=== PATIENT | male | born 1975 | race African-American/Black ===

== ENCOUNTER 2021-10-09 20:40 | Observation (INO) | payer SELFPAY ==
[~2021-10-09] VITALS: Ht 182 cm; Wt 84.3 kg
[2021-10-09] MEDS ORDERED: LACTATED RINGERS 1,000 ML IV ONE ×2 (20:45→21:15)
[2021-10-09 20:56] LABS: BASOPHILS % (AUTO) 0 % (0-10); EOSINOPHILS # (AUTO) 0.1 10^3/uL (0.0-0.3); EOSINOPHILS % (AUTO) 0 % (0-10); HEMATOCRIT 55 % (40-54); HEMOGLOBIN 17.9 g/dL (13.3-17.7); LYMPHOCYTES # (AUTO) 1.5 10^3/uL (1.0-4.0); LYMPHOCYTES % (AUTO) 13 % (12-44); MEAN CORPUSCULAR HEMOGLOBIN 26 pg (25-34); MEAN CORPUSCULAR HGB CONC 33 g/dL (32-36); MEAN CORPUSCULAR VOLUME 81 fL (80-99); MEAN PLATELET VOLUME 9.5 fL (9.0-12.2); MONOCYTES # (AUTO) 0.8 10^3/uL (0.0-1.0); MONOCYTES % (AUTO) 6 % (0-12); NEUTROPHILS # (AUTO) 9.9 10^3/uL (1.8-7.8); NEUTROPHILS % (AUTO) 80 % (42-75); PLATELET COUNT 375 10^3/uL (130-400); WHITE BLOOD COUNT 12.4 10^3/uL (4.3-11.0)
--- NOTE | 2021-10-09 20:58 | ED General ---
General Stated Complaint: HEAT EXHAUSTION History of Present Illness Date Seen by Provider: Oct 09, 2021 Time Seen by Provider: 20:40 Initial Comments 45-year-old -Hungarian male presents for weakness, chills, and dehydration. He states that he worked in a building that is not fully air- conditioned until approximately 6 PM tonight, he was drinking water regularly but upon coming home he became extremely weak and got chills. He has not been dehydrated before. Reports muscle cramps. Timing/Duration: 1-3 Hours Severity: Mild Associated Systoms: Denies Symptoms; No Malaise, No Nausea/Vomiting; Weakness Allergies and Home Medications Allergies Coded Allergies: No Known Drug Allergies (Unverified , 10/09/21) Patient Home Medication List Home Medication List Reviewed: Yes Review of Systems Review of Systems Constitutional: no symptoms reported, see HPI Respiratory: no symptoms reported, see HPI; No cough, No dyspnea on exertion, No short of breath Cardiovascular: no symptoms reported, see HPI; No chest pain Gastrointestinal: no symptoms reported, see HPI; No abdominal pain, No diarrhea, No nausea, No vomiting Musculoskeletal: see HPI, muscle cramps All Other Systems Reviewed Negative Unless Noted: Yes Past Lnvmfaj-Caxjkj-Ecumnr Hx Family Medical History Reviewed Nursing Family Hx Physical Exam Vital Signs Vital Signs - First Documented 10/09/21 20:54 Temp 37.3 Pulse 56 Resp 14 B/P (MAP) 132/106 (115) Pulse Ox 99 O2 Delivery Room Air Capillary Refill : Height, Weight, BMI Height: '" Weight: lbs. oz. kg; BMI Method: General Appearance: No Apparent Distress, WD/WN HEENT: PERRL/EOMI, TMs Normal, Normal ENT Inspection, Pharynx Normal, Other (oral mucosa pink and moist) Neck: Full Range of Motion, Normal Inspection, Non Tender, Supple Respiratory: Chest Non Tender, Lungs Clear, Normal Breath Sounds Cardiovascular: Regular Rate, Rhythm, No Murmur, Normal Peripheral Pulses Gastrointestinal: Normal Bowel Sounds, Non Tender, Soft Extremity: Normal Capillary Refill, Normal Inspection, Normal Range of Motion, Non Tender, No Calf Tenderness Neurologic/Psychiatric: Alert, Oriented x3, No Motor/Sensory Deficits, Normal Mood/Affect Progress/Results/Core Measures Suspected Sepsis SIRS Temperature: Pulse: Respiratory Rate: Laboratory Tests 10/09/21 20:45: White Blood Count 12.4H Blood Pressure / Mean: Laboratory Tests 10/09/21 20:45: Creatinine 4.49H, Platelet Count 375, Total Bilirubin 1.0 Results/Orders Lab Results Laboratory Tests Test 10/09/21 20:45 Range/Units White Blood Count 12.4 H 4.3-11.0 10^3/uL Red Blood Count 6.83 H 4.30-5.52 10^6/uL Hemoglobin 17.9 H 13.3-17.7 g/dL Hematocrit 55 H 40-54 % Mean Corpuscular Volume 81 80-99 fL Mean Corpuscular Hemoglobin 26 25-34 pg Mean Corpuscular Hemoglobin Concent 33 32-36 g/dL Red Cell Distribution Width 15.5 H 10.0-14.5 % Platelet Count 375 130-400 10^3/uL Mean Platelet Volume 9.5 9.0-12.2 fL Immature Granulocyte % (Auto) 1 % Neutrophils (%) (Auto) 80 H 42-75 % Lymphocytes (%) (Auto) 13 12-44 % Monocytes (%) (Auto) 6 0-12 % Eosinophils (%) (Auto) 0 0-10 % Basophils (%) (Auto) 0 0-10 % Neutrophils # (Auto) 9.9 H 1.8-7.8 10^3/uL Lymphocytes # (Auto) 1.5 1.0-4.0 10^3/uL Monocytes # (Auto) 0.8 0.0-1.0 10^3/uL Eosinophils # (Auto) 0.1 0.0-0.3 10^3/uL Basophils # (Auto) 0.0 0.0-0.1 10^3/uL Immature Granulocyte # (Auto) 0.1 0.0-0.1 10^3/uL Sodium Level 137 135-145 MMOL/L Potassium Level 3.7 3.6-5.0 MMOL/L Chloride Level 94 L 98-107 MMOL/L Carbon Dioxide Level 17 L 21-32 MMOL/L Anion Gap 26 H 5-14 MMOL/L Blood Urea Nitrogen 45 H 7-18 MG/DL Creatinine 4.49 H 0.60-1.30 MG/DL Estimat Glomerular Filtration Rate 16 BUN/Creatinine Ratio 10 Glucose Level 209 H 70-105 MG/DL Calcium Level 11.7 H 8.5-10.1 MG/DL Corrected Calcium 8.5-10.1 MG/DL Total Bilirubin 1.0 0.1-1.0 MG/DL Aspartate Amino Transf (AST/SGOT) 36 H 5-34 U/L Alanine Aminotransferase (ALT/SGPT) 44 0-55 U/L Alkaline Phosphatase 89 40-136 U/L Total Creatine Kinase 858 H 30-200 U/L Creatine Kinase MB 4.9 <6.6 NG/ML Myoglobin 2653.9 H 10.0-92.0 NG/ML Total Protein 10.4 H 6.4-8.2 GM/DL Albumin 6.1 H 3.2-4.5 GM/DL Serum Alcohol < 10 <10 MG/DL My Orders Orders - ROSSI ULLOA Alcohol (10/09/21 20:43) Cbc With Automated Diff (10/09/21 20:43) Comprehensive Metabolic Panel (10/09/21 20:43) Creatine Kinase (10/09/21 20:43) Creatine Kinase Mb (10/09/21 20:43) Drug Screen Stat (Urine) (10/09/21 20:43) Ua Culture If Indicated (10/09/21 20:43) Ed Iv/Invasive Line Start (10/09/21 20:43) Lactated Ringers (Lr 1000 Ml Iv Solution (10/09/21 20:45) Myoglobin Serum (10/09/21 20:45) Ekg Tracing (10/09/21 20:45) Continuous Ekg Monitoring (10/09/21 20:45) Ekg Tracing (10/09/21 20:51) Ed Iv/Invasive Line Start (10/09/21 21:03) Lactated Ringers (Lr 1000 Ml Iv Solution (10/09/21 21:15) Medications Given in ED Current Medications Medications Dose Ordered Sig/Elza Route Start Time Stop Time Status Last Admin Dose Admin Lactated Ringer's 1,000 ml @ 0 mls/hr Q0M ONCE IV 10/09/21 20:45 10/09/21 20:46 DC 10/09/21 20:50 0 MLS/HR Lactated Ringer's 1,000 ml @ 0 mls/hr Q0M ONCE IV 10/09/21 21:15 10/09/21 21:16 DC 10/09/21 21:14 0 MLS/HR Vital Signs/I&O 10/09/21 20:54 Temp 37.3 Pulse 56 Resp 14 B/P (MAP) 132/106 (115) Pulse Ox 99 O2 Delivery Room Air Capillary Refill : Progress Note : Time: 20:40 Progress Note Patient seen and evaluated, will obtain EKG, labs, urine, and give LR 1 L per IV. 2120 IV infused, will give second liter of LR. Taking ice chips and pedialyte, no N/V. 2140 Elevated Creatinine, Myoglobin and CK. Discussed with Dr. Vilchis, will admit for IV fluids and to monitor labs. Patient agreeable with this plan. ECG Initial ECG Impression Date: Oct 09, 2021 Initial ECG Impression Time: 20:54 Initial ECG Rate: 65 Initial ECG Rhythm: Normal Sinus Initial ECG Intervals: Normal Initial ECG Intervals NC 189, QRS D 99, QT 426, QTc 437. Purdum P 75, RR 96, T 43. Initial ECG Impression: Normal Initial ECG Comparisson: No Previous ECG Available Departure Impression Primary Impression: Heat exhaustion Qualified Codes: T67.5XXA - Heat exhaustion, unspecified, initial encounter Additional Impression: Dehydration Disposition: ADMITTED INPATIENT Condition: Stable Admissions Decision to Admit/Date: Oct 09, 2021 Time/Decision to Admit Time: 21:30 Departure-Patient Inst. [facility]: [facility] [place] Primary Care Physician Patient Instructions: Heat Exhaustion and Heat Stroke (DC) Add. Discharge Instructions: Alternate a bottle of water and a bottle of Gatorade or other sports drink every hour while working in the heat. Eat 1-2 bananas daily and eat food with higher salt content than normal. Take breaks frequently to get out of the heat. Take a multivitamin daily. Return to the emergency department for new, urgent healthcare needs. Copy Copies To 1: JANKI VILCHIS MD, AMY ARNP Oct 09, 2021 20:58
[2021-10-09 21:20] LABS: ALANINE AMINOTRANSFERASE 44 U/L (0-55); ALBUMIN 6.1 GM/DL (3.2-4.5); ALKALINE PHOSPHATASE 89 U/L (40-136); BUN/CREATININE RATIO 10; CALCIUM 11.7 MG/DL (8.5-10.1); CARBON DIOXIDE 17 MMOL/L (21-32); CHLORIDE 94 MMOL/L (98-107); CREATINE KINASE 858 U/L (30-200); CREATININE SERUM 4.49 MG/DL (0.60-1.30); GFR ESTIMATED 16; GLUCOSE 209 MG/DL (70-105); POTASSIUM 3.7 MMOL/L (3.6-5.0); SODIUM 137 MMOL/L (135-145); TOTAL PROTEIN 10.4 GM/DL (6.4-8.2)
[2021-10-09 21:52] LABS: CREATINE KINASE MB 4.9 NG/ML (<6.6)
[2021-10-09] MEDS ORDERED: NS IV 1000 ML 1,000 ML IV STA (22:07)
[2021-10-09 22:14] LABS: BILIRUBIN,URINE NEGATIVE (NEGATIVE); CLARITY,URINE CLEAR; COLOR,URINE YELLOW; GLUCOSE, URINE (UA) NEGATIVE (NEGATIVE); KETONES,URINE NEGATIVE (NEGATIVE); LEUKOCYTE ESTERASE ,URINE NEGATIVE (NEGATIVE); NITRITE,URINE NEGATIVE (NEGATIVE); PH,URINE 5.5 (5-9); PROTEIN,URINE TRACE (NEGATIVE)
[2021-10-09 22:23] LABS: BACTERIA,URINE NEGATIVE /HPF; CALCIUM OXALATE CRYSTALS,UR FEW /LPF; HYALINE CASTS, URINE 25-50 /LPF
[2021-10-09] MEDS ORDERED: NS IV 1000 ML 1,000 ML ONE (22:30)
[2021-10-09 22:33] LABS: AMPHETAMINE SCREEN, URINE NEGATIVE (NEGATIVE); BARBITURATE SCREEN URINE NEGATIVE (NEGATIVE); BENZODIAZEPINES SCREEN URINE NEGATIVE (NEGATIVE); CANNABINOID SCREEN, URINE POSITIVE (NEGATIVE); COCAINE SCREEN URINE NEGATIVE (NEGATIVE); METHADONE STAT NEGATIVE (NEGATIVE); OPIATE SCREEN URINE NEGATIVE (NEGATIVE); OXYCODONE STAT NEGATIVE (NEGATIVE); PROPOXYPHENE STAT NEGATIVE (NEGATIVE); TRICYCLIC ANTIDEPRESSANTS SCRE NEGATIVE (NEGATIVE)
[2021-10-09] MEDS ORDERED: ONDANSETRON 4 MG/2 ML (SDV) Z0FRAN IV PRN (23:15)
[2021-10-09] MEDS ORDERED: CALCIUM CARBONATE 500 MG (TUMS) TAB.CHEW PO PRN (23:15)
[2021-10-09] MEDS ORDERED: polyethylene glycoL POWDER 17 GM (MIRALAX) PACK PO PRN (23:15)
[2021-10-09] MEDS ORDERED: ONDANSETRON 4 MG (ZOFRAN) ORAL DISSOLVE TAB PO PRN (23:15)
[2021-10-09] MEDS ORDERED: ACETAMINOPHEN 325 MG TABLET PO PRN (23:15)
[2021-10-09 23:51] VITALS: BP 114/58
[2021-10-10] MEDS: NS IV 1000 ML 1,000 ML IV SCH ×4 (01:35→12:26)
[2021-10-10 03:59] VITALS: BP 121/71
[2021-10-10 07:07] LABS: HEMATOCRIT 45 % (40-54); HEMOGLOBIN 14.9 g/dL (13.3-17.7); MEAN CORPUSCULAR HEMOGLOBIN 27 pg (25-34); MEAN CORPUSCULAR HGB CONC 33 g/dL (32-36); MEAN CORPUSCULAR VOLUME 81 fL (80-99); MEAN PLATELET VOLUME 10.2 fL (9.0-12.2); PLATELET COUNT 287 10^3/uL (130-400); WHITE BLOOD COUNT 9.8 10^3/uL (4.3-11.0)
[2021-10-10 07:30] LABS: ALBUMIN 4.4 GM/DL (3.2-4.5); BILIRUBIN,TOTAL 1.1 MG/DL (0.1-1.0); CALCIUM 9.3 MG/DL (8.5-10.1); CREATININE SERUM 2.05 MG/DL (0.60-1.30); TOTAL PROTEIN 7.2 GM/DL (6.4-8.2)
[2021-10-10 07:57] VITALS: BP 132/63
--- NOTE | 2021-10-10 09:54 | History & Physical ---
HPI History of Present Illness: 45 yo male came to ER due to get overheating, was having cramps. SO states when she came in, he was laying the floor. 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 When he got home in the air conditioning he started feeling bad. They tried a cool bath at home first. This morning he states he feels way better and would like to go home. Date seen by provider: Oct 10, 2021 Time Seen by Provider: 09:52 Attending Physician [place] PCP Admitting Physician: Janki Vilchis MD Attending Physician: Janki Vilchis MD Consult Date of Admission Oct 09, 2021 at 21:30 Home Medications Home Medications Reviewed patient Home Medication Reconciliation performed by pharmacy medication reconciliations metallurgical or materials technician and/or nursing. Patients Allergies have been reviewed. Allergies Coded Allergies: No Known Drug Allergies (Unverified , 10/09/21) [id number]-Tjxozh Hx Patient Social History Smoking Status: Never a Smoker Alcohol Use?: No Substance type: Marijuana Have you traveled recently?: No Past Medical History PMHx: Denies SurgHx: Denies Family Medical History Significant Family History: Hypertension Review of Systems (CHC) Constitutional: chills; No fever Respiratory: No cough, No short of breath Cardiovascular: No chest pain Gastrointestinal: No abdominal pain, No constipation, No diarrhea; nausea, vomiting Genitourinary: decreased output; No dysuria Skin: No rash Reviewed Test Results Reviewed Test Results Lab Laboratory Tests Test 10/09/21 20:45 10/09/21 22:08 10/10/21 06:06 Range/Units White Blood Count 12.4 H 9.8 4.3-11.0 10^3/uL Red Blood Count 6.83 H 5.53 H 4.30-5.52 10^6/uL Hemoglobin 17.9 H 14.9 13.3-17.7 g/dL Hematocrit 55 H 45 40-54 % Mean Corpuscular Volume 81 81 80-99 fL Mean Corpuscular Hemoglobin 26 27 25-34 pg Mean Corpuscular Hemoglobin Concent 33 33 32-36 g/dL Red Cell Distribution Width 15.5 H 14.4 10.0-14.5 % Platelet Count 375 287 130-400 10^3/uL Mean Platelet Volume 9.5 10.2 9.0-12.2 fL Immature Granulocyte % (Auto) 1 % Neutrophils (%) (Auto) 80 H 42-75 % Lymphocytes (%) (Auto) 13 12-44 % Monocytes (%) (Auto) 6 0-12 % Eosinophils (%) (Auto) 0 0-10 % Basophils (%) (Auto) 0 0-10 % Neutrophils # (Auto) 9.9 H 1.8-7.8 10^3/uL Lymphocytes # (Auto) 1.5 1.0-4.0 10^3/uL Monocytes # (Auto) 0.8 0.0-1.0 10^3/uL Eosinophils # (Auto) 0.1 0.0-0.3 10^3/uL Basophils # (Auto) 0.0 0.0-0.1 10^3/uL Immature Granulocyte # (Auto) 0.1 0.0-0.1 10^3/uL Sodium Level 137 137 135-145 MMOL/L Potassium Level 3.7 4.0 3.6-5.0 MMOL/L Chloride Level 94 L 106 98-107 MMOL/L Carbon Dioxide Level 17 L 17 L 21-32 MMOL/L Anion Gap 26 H 14 5-14 MMOL/L Blood Urea Nitrogen 45 H 35 H 7-18 MG/DL Creatinine 4.49 H 2.05 H 0.60-1.30 MG/DL Estimat Glomerular Filtration Rate 16 40 BUN/Creatinine Ratio 10 17 Glucose Level 209 H 98 70-105 MG/DL Calcium Level 11.7 H 9.3 8.5-10.1 MG/DL Corrected Calcium 9.0 8.5-10.1 MG/DL Total Bilirubin 1.0 1.1 H 0.1-1.0 MG/DL Aspartate Amino Transf (AST/SGOT) 36 H 34 5-34 U/L Alanine Aminotransferase (ALT/SGPT) 44 30 0-55 U/L Alkaline Phosphatase 89 61 40-136 U/L Total Creatine Kinase 858 H 30-200 U/L Creatine Kinase MB 4.9 <6.6 NG/ML Myoglobin 2653.9 H 10.0-92.0 NG/ML Total Protein 10.4 H 7.2 6.4-8.2 GM/DL Albumin 6.1 H 4.4 3.2-4.5 GM/DL Serum Alcohol < 10 <10 MG/DL Urine Color YELLOW Urine Clarity CLEAR Urine pH 5.5 5-9 Urine Specific [place] >=1.030 1.016-1.022 Urine Protein TRACE H NEGATIVE Urine Glucose (UA) NEGATIVE NEGATIVE Urine Ketones NEGATIVE NEGATIVE Urine Nitrite NEGATIVE NEGATIVE Urine Bilirubin NEGATIVE NEGATIVE Urine Urobilinogen 0.2 < = 1.0 MG/DL Urine Leukocyte Esterase NEGATIVE NEGATIVE Urine RBC (Auto) 2+ H NEGATIVE Urine RBC 10-25 H /HPF Urine WBC NONE /HPF Urine Squamous Epithelial Cells 5-10 /HPF Urine Crystals PRESENT H /LPF Urine Calcium Oxalate Crystals FEW H /LPF Urine Bacteria NEGATIVE /HPF Urine Casts PRESENT /LPF Urine Hyaline Casts 25-50 H /LPF Urine Mucus LARGE H /LPF Urine Culture Indicated NO Urine Opiates Screen NEGATIVE NEGATIVE Urine Oxycodone Screen NEGATIVE NEGATIVE Urine Methadone Screen NEGATIVE NEGATIVE Urine Propoxyphene Screen NEGATIVE NEGATIVE Urine Barbiturates Screen NEGATIVE NEGATIVE Ur Tricyclic Antidepressants Screen NEGATIVE NEGATIVE Urine Phencyclidine Screen NEGATIVE NEGATIVE Urine Amphetamines Screen NEGATIVE NEGATIVE Urine Methamphetamines Screen NEGATIVE NEGATIVE Urine Benzodiazepines Screen NEGATIVE NEGATIVE Urine Cocaine Screen NEGATIVE NEGATIVE Urine Cannabinoids Screen POSITIVE H NEGATIVE Physical Exam-(CHC) Physical Exam Vital Signs VS - Last 72 Hours, by Label 10/09/21 10/09/21 10/09/21 10/09/21 20:54 22:51 23:20 23:51 Temp 37.3 37.0 36.8 Pulse 56 80 56 Resp 14 16 16 B/P (MAP) 132/106 (115) 132/100 114/58 (76) Pulse Ox 99 99 96 O2 Delivery Room Air Room Air Room Air Room Air 10/10/21 10/10/21 10/10/21 10/10/21 03:59 07:29 07:57 11:20 Temp 36.4 36.9 36.9 Pulse 72 65 65 Resp 16 18 18 B/P (MAP) 121/71 (88) 132/63 (86) 124/67 (86) Pulse Ox 99 99 100 O2 Delivery Room Air Room Air Room Air Room Air Capillary Refill : Less Than 3 Seconds General Appearance: WD/WN, no apparent distress Respiratory: lungs clear, normal breath sounds Cardiovascular: regular rate, rhythm, no murmur Gastrointestinal: normal bowel sounds, non tender, soft Extremities: no pedal edema Neurologic/Psychiatric: alert, normal mood/affect Skin: normal color, warm/dry Assessment/Plan Assessment/Plan Admission Status: Observation (1) Acute kidney insufficiency Status: Acute Assessment & Plan: Improved overnight with aggressive IV rehydration, but creatinine still above 2, patient requesting d/c, will repeat labs at noontime and d/c if creatinine still tending down well. (2) Dehydration Status: Acute (3) Heat exhaustion Status: Resolved Qualifiers: Qualified Codes: T67.5XXA - Heat exhaustion, unspecified, initial encounter JANKI VILCHIS MD Oct 10, 2021 09:54
[2021-10-10 11:20] VITALS: BP 124/67
[2021-10-10 13:40] LABS: CALCIUM 9.4 MG/DL (8.5-10.1); CREATININE SERUM 1.58 MG/DL (0.60-1.30); POTASSIUM 3.9 MMOL/L (3.6-5.0)
--- NOTE | 2021-10-10 13:50 | Discharge Summary ---
Discharge Summary Hospital Course Problems/Diagnosis: (1) Acute kidney insufficiency Status: Acute Assessment & Plan: Cr 4.49 on admit, decreased to 2.05 overnight with IVF and patient requested d/c, repeated labs about 6 hours later and cr down to 1.58 and he was tolerating intake well, so was discharged with instructions to continue to aggressively hydrate. (2) Heat exhaustion Status: Resolved Resolution Date/Time: 10/10/21 @ 13:47 Qualifiers: Qualified Codes: T67.5XXA - Heat exhaustion, unspecified, initial encounter (3) Dehydration Status: Acute Hospital Course Date of Admission: Oct 09, 2021 at 21:30 Admission Diagnosis : Family Physician/Provider: [place]/[facility] [place],Counts Include [facility] Beds At [facility] Date of Discharge: 10/10/21 Discharge Diagnosis: See problem list Hospital Course: Pt admitted after working in a non-airconditioned building all day, taking breaks in air conditioning and drinking water, but when he got home he felt sick and exhausted and vomited, found to have MELISSA and hydrated with IVF overnight. See problem list for details. Labs and Pending Lab Test: Laboratory Tests 10/09/21 20:45: White Blood Count 12.4H, Red Blood Count 6.83H, Hemoglobin 17.9H, Hematocrit 55H , Mean Corpuscular Volume 81, Mean Corpuscular Hemoglobin 26, Mean Corpuscular Hemoglobin Concent 33, Red Cell Distribution Width 15.5H, Platelet Count 375, Mean Platelet Volume 9.5, Immature Granulocyte % (Auto) 1, Neutrophils (%) (Auto) 80H, Lymphocytes (%) (Auto) 13, Monocytes (%) (Auto) 6, Eosinophils (%) (Auto) 0, Basophils (%) (Auto) 0, Neutrophils # (Auto) 9.9H, Lymphocytes # (Auto) 1.5, Monocytes # (Auto) 0.8, Eosinophils # (Auto) 0.1, Basophils # (Auto) 0.0, Immature Granulocyte # (Auto) 0.1, Sodium Level 137, Potassium Level 3.7, Chloride Level 94L, Carbon Dioxide Level 17L, Anion Gap 26H, Blood Urea Nitrogen 45H, Creatinine 4.49H, Estimat Glomerular Filtration Rate 16, BUN/Creatinine Ratio 10, Glucose Level 209H, Calcium Level 11.7H, Corrected Calcium , Total Bilirubin 1.0, Aspartate Amino Transf (AST/SGOT) 36H, Alanine Aminotransferase (ALT/SGPT) 44, Alkaline Phosphatase 89, Total Creatine Kinase 858H, Creatine Kinase MB 4.9, Myoglobin 2653.9H, Total Protein 10.4H, Albumin 6.1H, Serum Alcohol < 10 10/09/21 22:08: Urine Color YELLOW, Urine Clarity CLEAR, Urine pH 5.5, Urine Specific [place] >=1.030, Urine Protein TRACEH, Urine Glucose (UA) NEGATIVE, Urine Ketones NEGATIVE, Urine Nitrite NEGATIVE, Urine Bilirubin NEGATIVE, Urine Urobilinogen 0.2, Urine Leukocyte Esterase NEGATIVE, Urine RBC (Auto) 2+H, Urine RBC 10-25H, Urine WBC NONE, Urine Squamous Epithelial Cells 5-10, Urine Crystals PRESENTH, Urine Calcium Oxalate Crystals FEWH, Urine Bacteria NEGATIVE, Urine Casts PRESENT, Urine Hyaline Casts 25-50H, Urine Mucus LARGEH, Urine Culture Indicated NO, Urine Opiates Screen NEGATIVE, Urine Oxycodone Screen NEGATIVE, Urine Methadone Screen NEGATIVE, Urine Propoxyphene Screen NEGATIVE, Urine Barbiturates Screen NEGATIVE, Ur Tricyclic Antidepressants Screen NEGATIVE, Urine Phencyclidine Screen NEGATIVE, Urine Amphetamines Screen NEGATIVE, Urine Methamphetamines Screen NEGATIVE, Urine Benzodiazepines Screen NEGATIVE, Urine Cocaine Screen NEGATIVE, Urine Cannabinoids Screen POSITIVEH 10/10/21 06:06: White Blood Count 9.8, Red Blood Count 5.53H, Hemoglobin 14.9, Hematocrit 45, Mean Corpuscular Volume 81, Mean Corpuscular Hemoglobin 27, Mean Corpuscular Hemoglobin Concent 33, Red Cell Distribution Width 14.4, Platelet Count 287, Mean Platelet Volume 10.2, Sodium Level 137, Potassium Level 4.0, Chloride Level 106, Carbon Dioxide Level 17L, Anion Gap 14, Blood Urea Nitrogen 35H, Creatinine 2.05H, Estimat Glomerular Filtration Rate 40, BUN/Creatinine Ratio 17, Glucose Level 98, Calcium Level 9.3, Corrected Calcium 9.0, Total Bilirubin 1.1H, Aspartate Amino Transf (AST/SGOT) 34, Alanine Aminotransferase (ALT/SGPT) 30, Alkaline Phosphatase 61, Total Protein 7.2, Albumin 4.4 10/10/21 13:01: Sodium Level 139, Potassium Level 3.9, Chloride Level 105, Carbon Dioxide Level 22, Anion Gap 12, Blood Urea Nitrogen 27H, Creatinine 1.58H, Estimat Glomerular Filtration Rate 55, BUN/Creatinine Ratio 17, Glucose Level 98, Calcium Level 9.4 Assessment/Pt DC Instructions Follow up with primary provider within a week of discharge. Your kidney function was not all the way down to normal at d/c, so should follow up to check and make sure it has completely resolved. Discharge Diet: No Restrictions Activity as Tolerated: No (avoid strenuous activity for the next few days, as well as heat) Discharge Physical Examination Allergies: Coded Allergies: No Known Drug Allergies (Unverified , 10/09/21) General Appearance: No Apparent Distress, WD/WN Respiratory: Lungs Clear, Normal Breath Sounds Cardiovascular: Regular Rate, Rhythm, No Murmur Gastrointestinal: Normal Bowel Sounds, Non Tender, Soft Extremity: No Pedal Edema Skin: Warm/Dry Neurologic/Psychiatric: Alert, Normal Mood/Affect JANKI ESTRADA MD Oct 10, 2021 13:49
[2021-10-10 15:16] VITALS: BP 124/67
== END 2021-10-10 13:45 | disposition home or self-care (01) ==
LOC: ER 20:47 → 4TH 21:30 → UNDOADMOB 21:30 → 4TH 23:00 → UNDODISOB 10-10 14:00
PROVIDERS: ADMIT Family Medicine; ATTEND Family Medicine
DX: N17.9 Acute kidney failure, unspecified (principal); T67.5XXA Heat exhaustion, unspecified, initial encounter; E86.0 Dehydration
CPT/HCPCS: 80048; 80053 ×2; 80306; 81000; 82550; 82553; 83874; 85025; 85027; 93005; 96361; 99284; G0378; G0480; 36415; 80320